=== PATIENT | female | born 1985 | race Caucasian/White ===

== ENCOUNTER 2017-09-27 04:36 | Emergency (ER) | payer OTHER ==
[~2017-09-27] VITALS: Ht 170.1 cm; Wt 90.7 kg
[~2017-09-27 04:36] MED LIST: ADIPEX37.5 MG PO; B-12 TIME1000 MCG PO; MOTRIN800 MG PO; NEXIUM40 MG PO; VICODIN 5/500 505 MG PO
[2017-09-27] MEDS ORDERED: DEXILANT60 M1 PO (04:45)
[2017-09-27] MEDS ORDERED: ATIVAN0.5 MG PO (04:45)
[2017-09-27] MEDS ORDERED: ULTRAM50 MG PO (06:40)
[2017-09-27] MEDS ORDERED: KEFLEX500 M1 PO (06:40)
[2017-09-28] MEDS ORDERED: KETOROLAC10 MG PO (19:29)
== END 2017-09-27 07:04 | disposition home or self-care (01) ==
LOC: ED 04:36
DX: S60.111A Contusion of right thumb with damage to nail, initial encounter (principal); Z88.5 Allergy status to narcotic agent; Z79.899 Other long term (current) drug therapy; Z90.49 Acquired absence of other specified parts of digestive tract; V49.88XA Car occupant (driver) (passenger) injured in other specified transport accidents, initial encounter; Y93.89 Activity, other specified; Y92.89 Other specified places as the place of occurrence of the external cause; Y99.8 Other external cause status

== ENCOUNTER 2017-09-28 16:50 | Emergency (ER) | payer OTHER ==
[~2017-09-28] VITALS: Wt 90.7 kg
[~2017-09-28 16:50] MED LIST changes: +ATIVAN0.5 MG PO; +DEXILANT60 M1 PO; +KEFLEX500 M1 PO; +ULTRAM50 MG PO
[2017-09-28 17:56] LABS: BASO % 0.3 % (0.0-1.0); EOS % 0.4 % (1.0-4.0); HEMATOCRIT 41.5 % (37.0-47.0); HEMOGLOBIN 14.2 g/dl (12.0-16.0); LYMPH # 1.4 10*3/uL (1.3-4.4); LYMPH % 12.5 % (27.0-41.0); MEAN CELL VOLUME 89.1 fl (81.0-99.0); MEAN CORPUSCULAR HGB 30.5 pg (27.0-31.0); MEAN CORPUSCULAR HGB CONC 34.2 g/dl (33.0-37.0); MEAN PLATELET VOLUME 10.1 fl (9.6-12.3); MONO # 0.4 10*3/uL (0.1-1.0); MONO % 3.5 % (3.0-9.0); NEUT # 9.2 10*3/uL (2.3-7.9); PLATELET COUNT AUTOMATED 271 10*3/uL (130-400); RED BLOOD COUNT 4.66 10*6/uL (4.10-5.10); RED CELL DISTRI WIDTH 12.4 % (0-14.5); WHITE BLOOD COUNT 11.1 10*3/uL (4.8-10.8)
[2017-09-28] MEDS ORDERED: KETOROLAC10 MG PO (19:29)
== END 2017-09-28 19:34 | disposition home or self-care (01) ==
LOC: ED 16:50
PROVIDERS: Physician Assistant
DX: S69.91XA Unspecified injury of right wrist, hand and finger(s), initial encounter (principal); Z79.899 Other long term (current) drug therapy; Z90.49 Acquired absence of other specified parts of digestive tract; X58.XXXA Exposure to other specified factors, initial encounter; Y93.89 Activity, other specified; Y92.89 Other specified places as the place of occurrence of the external cause; Y99.8 Other external cause status

== ENCOUNTER 2022-06-09 19:26 | Emergency (ER) | payer OTHER ==
[~2022-06-09 19:26] MED LIST changes: +KETOROLAC10 MG PO
[2022-06-09] MEDS ORDERED: AMOX-CLAV 875-1 EACH PO (22:04)
[2022-06-09] MEDS ORDERED: TRAMADOL HCL100 MG PO (22:05)
== END 2022-06-09 22:16 | disposition home or self-care (01) ==
LOC: ED 19:26
DX: S61.452A Open bite of left hand, initial encounter (principal); Z88.8 Allergy status to other drugs, medicaments and biological substances; Z79.899 Other long term (current) drug therapy; Z90.49 Acquired absence of other specified parts of digestive tract; W54.0XXA Bitten by dog, initial encounter; Y93.89 Activity, other specified; Y92.89 Other specified places as the place of occurrence of the external cause; Y99.8 Other external cause status